=== PATIENT | male | born 1990 | race Two or more races ===

== ENCOUNTER 2018-08-21 12:59 | Emergency (ER) | payer BC ==
[~2018-08-21] VITALS: Ht 170.2 cm; Wt 90.7 kg
[2018-08-21 13:13] VITALS: BP 143/96
[2018-08-21] MEDS ORDERED: IBUPROFEN 800 MG TAB PO ONE (15:00)
== END 2018-08-21 15:18 | disposition home or self-care (01) ==
LOC: ER 12:59
DX: S52.124A Nondisplaced fracture of head of right radius, initial encounter for closed fracture (principal); W01.0XXA Fall on same level from slipping, tripping and stumbling without subsequent striking against object, initial encounter; Y93.89 Activity, other specified; Y99.8 Other external cause status; Y92.89 Other specified places as the place of occurrence of the external cause
CPT/HCPCS: 73080; 73090

== ENCOUNTER 2024-11-25 09:09 | Emergency (ER) | payer BC, OTHER ==
[~2024-11-25] VITALS: Ht 170.2 cm; Wt 135.1 kg
--- NOTE | 2024-11-25 10:37 | DVH ---
CLINICAL INDICATION: possible fracture s/p twisting ankle TECHNIQUE: XY R ANKLE 3 VIEW Comparison: None FINDINGS/IMPRESSION: : There is no evidence of acute fracture or dislocation. Soft tissues are unremarkable.
--- NOTE | 2024-11-25 10:52 | ED.PDOC ---
Musculoskeletal HPI Comments 34-year-old male with no MHx presents for a possible fracture to the right ankle. Accident occurred yesterday after he stepped on a pine cone and inverted his ankle Lawrence a sudden snap & is unsure if it was his bone or the pine cone that was crushed Now complains of lateral malleolus pain with ambulation and improves at rest Still able to bear weight Denies previous surgeries to the ankle Denies redness or swelling around the ankle Denies fever chills night sweats nausea vomiting Chief Complaint: Lower Extremity Time Seen by MD: 10:07 Primary Care Provider: NONE Reviewed Notes: Nurses Notes, Medications, Allergies Allergies: Coded Allergies: NO KNOWN ALLERGIES (Unverified , 08/21/18) Information Source: Patient Mode of Arrival: Ambulatory Past Medical History PAST MEDICAL HISTORY: Denies Surgical History: Denies all surgeries Family History Family History: Unknown Social History Smoker: Non-Smoker Lives In: Home All Other Systems: Reviewed and Negative (Per hPI) Physical Exam General Appearance: No Apparent Distress, Normal HEENT: Normal ENT Inspection, Pharynx Normal, TMs Normal Neck: Full Range of Motion, Non-Tender, Normal, Normal Inspection Respiratory: Chest Non-Tender, Lungs Clear, No Accessory Muscle Use, No Respiratory Distress, Normal Breath Sounds Cardiovascular: No Edema, No JVD, No Murmur, No Gallop, Normal Peripheral Pulses, Regular Rate/Rhythm Breast Exam: Deferred Gastrointestinal: No Organomegaly, Non Tender, No Pulsatile Mass, Normal Bowel Sounds, Soft Genitalia: Deferred Pelvic: Deferred Rectal: Deferred Extremities: No calf tenderness, Normal capillary refill, Normal inspection, Normal range of motion, Non-tender, No pedal edema Musculoskeletal : Location: Right Extremity Location: Ankle (No gross abnormality on inspection. Full ROM. Distal neuro sensation intact. Dorsalis pedis pulses 2+) Apperance: Normal Neurologic: Alert, No Motor Deficits, Normal Affect, Normal Mood, No Sensory Deficits Cerebellar Function: Normal Reflexes: Normal Skin: Dry, Normal Color, Warm Lymphatic: No Adenopathy Was a procedure done? Was a procedure done?: No Differential Diagnosis EXT Differential Diagnosis: Fracture, Sprain, Dislocation X-Ray, Labs, Meds, VS Vital Signs Date Time Temp Pulse Resp B/P (MAP) Pulse Ox O2 Delivery O2 Flow Rate FiO2 11/25/24 10:54 97.8 113 16 155/97 (116) 97 97.8 11/25/24 10:54 113 16 97 Room Air 11/25/24 09:30 97.8 116 16 115/97 (103) 97 X-Ray, Labs, Meds, VS Comment History and examination consistent of muscular injury X-rays ordered, read by radiologist and reviewed by me Take IBU 600 w/ food as needed for pain Recommended heat therapy Reviewed RICE management Avoid heavy lifting or strenuous activity Recommended range of motion exercises and limit heavy activity for 1 week If no improvement advised patient to return to the emergency department for follow-up. Discussed possibility of a occult fracture Time of 1ST Reevaluation: 10:45 Reevaluation 1ST: Improved Patient Education/Counseling: Diagnosis, Treatment Family Education/Counseling: Diagnosis, Treatment Departure 1 Departure Time of Disposition: 10:51 Impression: Primary Impression: Ankle sprain Qualified Codes: S93.401A - Sprain of unspecified ligament of right ankle, initial encounter Disposition: 01 HOME / SELF CARE / HOMELESS Condition: Stable Discharged With: Self Critical Care Note Critical Care Time?: No Stability Stability form required: No Heart Score Heart Score: Heart Score Response (Comments) Value History N/A 0 EKG N/A 0 Age N/A 0 Risk Factors N/A 0 Troponin N/A 0 Total 0 SHANTANU FISH POSTDOCTORAL FELLOW Nov 25, 2024 10:52
[2024-11-25 10:54] VITALS: BP 155/97; PULSE 113; RESP 16; TEMP 97.8; O2SAT 97
== END 2024-11-25 11:00 | disposition home or self-care (01) ==
LOC: ER 09:09
DX: S93.491A Sprain of other ligament of right ankle, initial encounter (principal); X50.1XXA Overexertion from prolonged static or awkward postures, initial encounter; Y93.89 Activity, other specified; Y92.89 Other specified places as the place of occurrence of the external cause; Y99.8 Other external cause status
CPT/HCPCS: 73610